=== PATIENT | male | born 1960 | race Caucasian/White ===

== ENCOUNTER → 2024-03-03 | Outpatient (CLI) | payer MEDICARE, BC ==
[2024-03-03 14:57] VITALS: BP 119/74; PULSE 71; RESP 18; TEMP 98.2
--- NOTE | 2024-03-03 15:26 | P.SLEEP ---
History of Present Illness DATE: 03/03/2024 CONSULTATION/NEW PATIENT EVALUATION HISTORY OF PRESENT ILLNESS/SLEEP-WAKE EVALUATION: 64-year-old gentleman had b een evaluated in the sleep center for possible obstructive sleep apnea hypopnea syndrome. SLEEP SCHEDULE: Usually sleep schedule from 1011 PM to 78 AM. FALLING ASLEEP: No problems with falling asleep, patient used to read in bedroom. DURING SLEEP: Patient has loud snoring and witnessed episodes of stop breathing during the sleep by his . Patient wakes up from sleep 2 times with episodes of nocturia. No history of hypnogogical hallucinations, sleep paralysis, or cataplexy. DURING THE DAY/WAKE STATE: In the morning patient wake up tired, falling asleep during the day. [place] sleepiness scale is significantly increased to 12. Patient may take nap early afternoon. PAST MEDICAL HISTORY: Hypertension, hyperlipidemia, acid reflux. PAST SURGICAL HISTORY: None. MEDICATIONS: Please see below. SOCIAL HISTORY: Please see below. FAMILY HISTORY: Coronary artery disease. REVIEW OF SYSTEMS: Snoring, awakenings from sleep, sleepiness during the day. No fevers. No double vision. No recent chest pain. No shortness of breath. No abdominal pain. No bleeding episodes. No blood in urine. No seizure episodes. PHYSICAL EXAMINATION: GENERAL: A pleasant patient without any distress. VITAL SIGNS: Please see below, weight 208.4 pounds, BMI 31.6. HEENT: PERRLA, EOMI. Evaluation of oropharynx showed tongue protrudes midline, low position of soft palate Mallampati 4. NECK: Supple. No JVD. Thyroid is not palpable. 17 inches in circumference. LUNGS: Clear to percussion and to auscultation. Good air exchange. No wheezing or rhonchi. HEART: S1, S2 regular. No murmurs, gallops or rubs. ABDOMEN: Soft and nontender. Bowel sounds are present. No organomegaly appreciated. EXTREMITIES: No clubbing or cyanosis. J[employer] SOFTWARE ENGINEER: Awake, alert, and oriented x3. Cranial nerves 2 to 7 intact. There is no fasciculation or atrophy noted. No focal deficits observed. ASSESSMENT: 1. Loud snoring, witnessed episodes of stop breathing during the sleep, extremely low position of soft palate Mallampati 4, wide neck 17 inches in circumference, sleepiness with [place] Sleepiness Scale increased to 12. Obstructive sleep apnea hypopnea syndrome. 2. Mild obesity, BMI 31.6. 3. Hypertension. 4. Hyperlipidemia. 5 acid reflux. PLAN: 1. Polysomnography for evaluation of patient's breathing during sleep. 2. Following plan after reading sleep study. 3. Preferable position during sleep on the side. 4. No driving if patient feels any sleepiness. Patient is aware of civil and criminal liability for unsafe driving. 5. Sleep hygiene with regular sleep time for at least 7.5-8 hours. 6. Watching and losing weight. Thank you very much for referring this patient for consultation. Sincerely, Evan Waldrop MD, PhD, FAASM. Diplomat of [place] [employer], Sleep Medicine Board by [employer] [employer] [employer] Executive Office Manager of [facility] [place] cc: Wing Moore MD Past Medical History Past Medical History: GERD/Reflux, Hyperlipidemia, Hypertension Additional Past Medical History / Comment(s): snoring History of Any Multi-Drug Resistant Organisms: None Reported Past Surgical History: No Surgical Hx Reported Past Psychological History: No Psychological Hx Reported Smoking Status: Former smoker Past Alcohol Use History: Occasional Past Drug Use History: None Reported - Past Family History Father Additional Family Medical History / Comment(s): Angina Medications and Allergies Home Medications Medication Instructions Recorded Confirmed Type Aspirin [Children's Aspirin] 81 mg PO DIRECTED 03/03/24 03/03/24 History Atorvastatin [Lipitor] 10 mg PO DAILY 03/03/24 03/03/24 History Metoprolol Succinate [[place] 03/03/24 History Sprinkle] Metoprolol Succinate [Metoprolol 25 mg PO DAILY 03/03/24 03/03/24 History Succinate ER] lisinopriL [Zestril] 10 mg PO DAILY 03/03/24 03/03/24 History Physical Exam Vitals: Vital Signs Temp Pulse Resp BP Pulse Ox 03/03/24 14:53 98.2 F 71 18 119/74 94 L Intake and Output 03/03/24 03/03/24 03/03/24 06:59 14:59 22:59 Other: Weight 94.461 kg Sleep Note - Sleep Data ESS Total: 12 - Sleep Note Sleep Note: Temperature: 98.2 F Pulse Rate: 71 Respiratory Rate: 18 Blood Pressure: 119/74 SpO2: 94 Height: 5 ft 8 in Weight: 94.461 kg BMI: Neck Circumference: 17
== END ==
LOC: 3 N SLEEP 14:37
PROVIDERS: ATTEND Internal Medicine
CPT/HCPCS: 99202

== ENCOUNTER → 2024-05-02 | Outpatient (CLI) | payer MEDICARE, BC ==
--- NOTE | 2024-05-04 10:31 | P.PCN ---
Description of Procedure: CLINICAL: A home sleep apnea test has been done for confirmation of possible obstructive sleep apnea-hypopnea syndrome. DESCRIPTION OF PROCEDURE: RESULTS: Recording time was 6 hours 47 minutes. Evaluation time was 6 hours 25 minutes. Evaluation time is sufficient for making conclusion about results of the test. Raw data of sleep recording has been reviewed and is adequate. Respiratory channel showed 246 apneas and 77 hypopneas. Apnea-hypopnea index was 50.3 per hour, . Pulse rate in the range between minimum 47, maximum 74, average 59 by computer calculation. Lowest desaturation was 76%. IMPRESSION: 1. Severe Obstructive Sleep Apnea Hypopnea Syndrome. Please see other impressions from consultation. PLAN: 1. The patient should have PAP titration for correction of respiratory abnormallities during sleep. 2. Sleep hygiene with regular time in bed for at least 8 hours. 3. Watching and losing weight. 4. No driving if feeling any sleepiness. Thank you very much for allowing me to participate in the management of your patient. Sincerely, Evan Waldrop MD, PhD, FAASM Diplomat of [employer] [employer] Sleep Medicine Board of [place] [employer]elry Store Manager of [facility] [place] cc: Wing Moore MD
== END ==
LOC: 3 N SLEEP 13:00
PROVIDERS: ATTEND Internal Medicine
DX: G47.33 Obstructive sleep apnea (adult) (pediatric) (principal)